=== PATIENT | female | born 1995 | race Caucasian/White ===

== ENCOUNTER 2017-02-27 21:00 | Emergency (ER) | payer OTHER ==
[2017-02-27 21:04] VITALS: BMI 26.6
[2017-02-27] MEDS ORDERED: ONDANSETRON 4 MG/2 ML VIAL IVPUSH ONE (21:55)
[2017-02-27] MEDS ORDERED: morphine CARPU-JECT 4 MG/1 ML DISP.SYRIN IVPUSH ONE (21:55)
[2017-02-27] MEDS ORDERED: SODIUM CHLORIDE 1,000 ML IV STA (21:55)
[2017-02-27] MEDS ORDERED: ONDANSETRON 4 MG/2 ML VIAL ONE (22:04)
[2017-02-27] MEDS ORDERED: morphine CARPU-JECT 4 MG/1 ML DISP.SYRIN ONE (22:04)
--- NOTE | 2017-02-27 22:27 | PDOC ---
History of Present Illness - General Chief Complaint: Pain Stated Complaint: PAIN Time Seen by Provider: 02/27/17 21:45 History Source: Patient Exam Limitations: No Limitations - History of Present Illness Travel History: No Initial Comments: 02/27/17 22:22 21yo Female patient w/ PmHx: Polycystic Ovarian Syndrome presents to ED c/o Lower abdominal pain. Patient reports some mild discomfort yesterday, but while eating a salad today at [employer] she experienced a sudden increase in pain approximately 30 mins ago. Patient states 2 yrs ago experiencing similar symptoms while in [facility] [place] and had to have emergency surgery due to rupture. She states having Ultrasound 2 months ago that was "normal." Patient denies n/v/d, vaginal bleeding, dysuria, hematuria, back pain, diff breathing, fever, or any other complaints at this time. LNMP: February 01. Timing/Duration: reports: other (Sudden Onset) Quality: reports: severe Abdominal Pain Onset Location: reports: suprapubic Pain Radiation: reports: no radiation Activities at Onset: reports: eating Treatment Prior to Arrive: worse with: analgesics, antacids, cold pack, heat, laxative, enema, other Aggravating Factors: improves with: Eating, Movement, Change in position Alleviating Factors: improves with: None Past History - Travel Traveled outside of the country in the last 30 days: No Close contact w/someone who was outside of country & ill: No - Past Medical History Allergies/Adverse Reactions: Allergies Allergy/AdvReac Type Severity Reaction Status Date / Time No Known Allergies Allergy Verified 02/27/17 21:04 Home Medications: Ambulatory Orders Ibuprofen 600 mg PO Q6H PRN #20 tablet 02/28/17 Tramadol HCl 50 mg PO Q6H PRN #16 tablet MDD 4 TABS 02/28/17 Other medical history: PCOS - Surgical History Abdominal Surgery: Yes - Psycho/Social/Smoking Cessation Hx Suicidal Ideation: No Smoking History: Never smoked Abd/GI Specific PMHX - Complaint Specific PMHX Colitis: No Diverticulitis: No Gall Bladder Disease: No GERD: No Hepatitis: No Irritable Bowel Synd (IBS): No Pancreatitis: No GI Ulcer Disease: No Review of Systems - Review of Systems Able to Perform ROS?: Yes Is the patient limited Lithuanian proficient: No Constitutional: No: Chills, Fever ABD/GI: Yes: Abdominal Distended, Abdominal cramping. No: Constipated, Diarrhea , Nausea, Poor Appetite, Poor Fluid Intake, Rectal Bleeding, Vomiting : No: Burning, Dysuria, Flank Pain, Hematuria Musculoskeletal: No: Back Pain All Other Systems: Reviewed and Negative *Physical Exam - Vital Signs Last Vital Signs Temp Pulse Resp BP Pulse Ox 98.6 F 89 18 146/66 99 02/27/17 21:02 02/27/17 21:02 02/27/17 21:02 02/27/17 21:02 02/27/17 21:02 - Physical Exam General Appearance: Yes: Nourished, Appropriately Dressed, Apparent Distress, Moderate Distress. No: Mild Distress, Severe Distress Neck: positive: Trachea midline, Normal Thyroid, Supple. negative: Rigid, Stridor, Lymphadenopathy (R), Lymphadenopathy (L) Respiratory/Chest: positive: Lungs Clear, Normal Breath Sounds. negative: Chest Tender, Respiratory Distress, Accessory Muscle Use, Labored Respiration, Rapid RR, Rhonchi, Stridor, Wheezing Cardiovascular: positive: Regular Rhythm, Regular Rate. negative: Bradycardia, Tachycardia Gastrointestinal/Abdominal: positive: Normal Bowel Sounds, Tender, Soft, Distended, Guarding, Rebound, Tenderness (Pelvic region) Musculoskeletal: positive: Normal Inspection. negative: CVA Tenderness Extremity: positive: Normal Capillary Refill, Normal Inspection, Normal Range of Motion, Pelvis Stable Integumentary: positive: Normal Color, Dry, Warm. 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 NML intact, Fully Oriented, Alert, Normal Mood/ Affect, Normal Response, Motor Strength /5 ED Treatment Course - LABORATORY CBC & Chemistry Diagram: 02/27/17 22:00 02/27/17 22:00 - RADIOLOGY Radiology Studies Ordered: Category Date Time Status TRANSVAGINAL ULTRASOUND US [US] Stat Ultrasound 02/27/17 21:56 Ordered - Medications Given in the ED: ED Medications Discontinued Medications Generic Name Dose Route Start Last Admin Trade Name Freq PRN Reason Stop Dose Admin Morphine Sulfate 4 mg 02/27/17 21:55 02/27/17 22:13 Morphine Injection - IVPUSH 02/27/17 21:56 4 mg ONCE ONE Administration Ondansetron HCl 4 mg 02/27/17 21:55 02/27/17 22:15 Zofran Injection IVPUSH 02/27/17 21:56 4 mg ONCE ONE Administration *DC/Admit/Observation/Transfer Diagnosis at time of Disposition: Ruptured ovarian cyst, Polycystic disease, ovaries - Discharge Dispostion Disposition: HOME Condition at time of disposition: Improved Admit: No - Prescriptions Prescriptions: Ibuprofen 600 mg PO Q6H PRN #20 tablet PRN Reason: Mild Pain Tramadol HCl 50 mg PO Q6H PRN #16 tablet MDD 4 TABS PRN Reason: Severe Pain - Referrals Referrals: STAFF,NOT ON [Primary Care Provider] - Ave Benavides MD [Staff Physician] - - Patient Instructions Printed Discharge Instructions: DI for Ovarian Cyst, DI for Ovarian Cyst Removal Additional Instructions: FOLLOW UP WITH YOUR PAPER HANGER THIS WEEK FOR FURTHER EVALUATION, OR FOLLOW UP WITH DR. BENAVIDES (PAPER HANGER). CALL TO SCHEDULE APPOINTMENT. TAKE MEDICATIONS PRESCRIBED. MOTRIN WORKS BEST. APPLY WARM COMPRESS/HEATING PAD TO ABDOMEN NEEDED FOR COMFORT. TRAMADOL FOR SEVERE PAIN NOT RELIEVED BY MOTRIN. RETURN IF SYMPTOM WORSEN OR ANY CONCERN FOR FURTHER EVALUATION. Print Language: FAROESE - Post Discharge Activity Work/School Note: Back to Work
[2017-02-27 22:44] LABS: BASOPHIL 0.3 % (0-2.0); EOSINOPHIL 2.6 % (0-4.5); MCH 27.2 pg (25.7-33.7); MCHC 32.5 g/dl (32.0-36.0); MEAN CELL VOLUME 83.6 fl (80-96); MEAN PLT VOLUME 9.8 fl (7.5-11.1); PLATELET COUNT 255 K/MM3 (134-434); RDW 13.6 % (11.6-15.6); WHITE BLOOD COUNT 11.9 K/mm3 (4.0-10.0)
[2017-02-27 22:52] LABS: INR 1.08 (0.82-1.09); PROTHROMBIN TIME (PATIENT) 11.9 SEC (9.98-11.88)
--- NOTE | 2017-02-27 22:53 | PDOC ---
*Physical Exam - Vital Signs Last Vital Signs Temp Pulse Resp BP Pulse Ox 98.6 F 89 18 146/66 99 02/27/17 21:02 02/27/17 21:02 02/27/17 21:02 02/27/17 21:02 02/27/17 21:02 - Physical Exam Comments: 02/27/17 22:53 The patient was examined by [JESUS Hagen] under my direct supervision. I personally evaluated the patient. I concur with the above findings and the plan of care. ED Treatment Course - LABORATORY CBC & Chemistry Diagram: 02/27/17 22:00 02/27/17 22:00 - ADDITIONAL ORDERS Additional order review: 02/27/17 22:00 RBC 4.31 MCV 83.6 MCHC 32.5 RDW 13.6 MPV 9.8 Neutrophils % 56.0 Lymphocytes % 34.0 Monocytes % 7.1 Eosinophils % 2.6 Basophils % 0.3 - Medications Given in the ED: ED Medications Discontinued Medications Generic Name Dose Route Start Last Admin Trade Name Freq PRN Reason Stop Dose Admin Morphine Sulfate 4 mg 02/27/17 21:55 02/27/17 22:13 Morphine Injection - IVPUSH 02/27/17 21:56 4 mg ONCE ONE Administration Ondansetron HCl 4 mg 02/27/17 21:55 02/27/17 22:15 Zofran Injection IVPUSH 02/27/17 21:56 4 mg ONCE ONE Administration *DC/Admit/Observation/Transfer Diagnosis at time of Disposition: Ruptured ovarian cyst, Polycystic disease, ovaries - Discharge Dispostion Disposition: HOME - Prescriptions Prescriptions: Ibuprofen 600 mg PO Q6H PRN #20 tablet PRN Reason: Mild Pain Tramadol HCl 50 mg PO Q6H PRN #16 tablet MDD 4 TABS PRN Reason: Severe Pain - Referrals Referrals: Ave Benavides MD [Staff Physician] - STAFF,NOT ON [Primary Care Provider] - - Patient Instructions Printed Discharge Instructions: DI for Ovarian Cyst Removal, DI for Ovarian Cyst Additional Instructions: FOLLOW UP WITH YOUR TRIM MACHINE ADJUSTER THIS WEEK FOR FURTHER EVALUATION, OR FOLLOW UP WITH DR. BENAVIDES (TRIM MACHINE ADJUSTER). CALL TO SCHEDULE APPOINTMENT. TAKE MEDICATIONS PRESCRIBED. MOTRIN WORKS BEST. APPLY WARM COMPRESS/HEATING PAD TO ABDOMEN NEEDED FOR COMFORT. TRAMADOL FOR SEVERE PAIN NOT RELIEVED BY MOTRIN. RETURN IF SYMPTOM WORSEN OR ANY CONCERN FOR FURTHER EVALUATION. Print Language: DIVEHI - Post Discharge Activity Work/School Note: Back to Work
[2017-02-27 22:55] LABS: ACTIVATED PTT 30.6 SECONDS (26.9-34.4)
[2017-02-27 23:02] LABS: ALBUMIN 3.8 g/dl (3.4-5.0); ANION GAP 7 (8-16); BILIRUBIN,TOTAL 0.4 mg/dL (0.2-1.0); CALCIUM 8.8 mg/dL (8.5-10.1); CO2 26 mmol/L (21-32); CREATININE 0.8 mg/dL (0.55-1.02); GLUCOSE,RANDOM 93 mg/dL (74-106); SGOT/AST 21 U/L (15-37); SGPT/ALT 19 U/L (12-78); TOT PROT 7.2 g/dl (6.4-8.2)
[2017-02-27 23:03] LABS: ALK PHOS 52 U/L (45-117)
[2017-02-28 01:59] LABS: URINE APPEARANCE CLEAR; URINE BILIRUBIN NEGATIVE (NEGATIVE); URINE BLOOD NEGATIVE (NEGATIVE); URINE COLOR COLORLESS; URINE GLUCOSE (UA) NEGATIVE (NEGATIVE); URINE KETONE NEGATIVE (NEGATIVE); URINE LEUK ESTERASE NEGATIVE (NEGATIVE); URINE NITRITE NEGATIVE (NEGATIVE); URINE PROTEIN NEGATIVE (NEGATIVE); URINE UROBILINOGEN NEGATIVE E.U./dl (0.2-1.0)
[2017-02-28 02:05] VITALS: BP 113/60; PULSE 67; TEMP 98.3
--- NOTE | 2017-02-28 13:02 | PDOC ---
*Physical Exam - Vital Signs Last Vital Signs Temp Pulse Resp BP Pulse Ox 98.3 F 67 17 113/60 96 02/28/17 02:04 02/28/17 02:04 02/28/17 02:04 02/28/17 02:04 02/28/17 02:04 ED Treatment Course - LABORATORY CBC & Chemistry Diagram: 02/27/17 22:00 02/27/17 22:00 - ADDITIONAL ORDERS Additional order review: Laboratory Results 02/27/17 22:00 Serum , Qual Negative Urine Color Colorless Urine Appearance Clear Urine pH 6.0 Ur Specific [place] 1.010 Urine Protein Negative Urine Glucose (UA) Negative Urine Ketones Negative Urine Blood Negative Urine Nitrite Negative Urine Bilirubin Negative Urine Urobilinogen Negative Ur Leukocyte Esterase Negative 02/27/17 22:00 RBC 4.31 MCV 83.6 MCHC 32.5 RDW 13.6 MPV 9.8 Neutrophils % 56.0 Lymphocytes % 34.0 Monocytes % 7.1 Eosinophils % 2.6 Basophils % 0.3 - Medications Given in the ED: ED Medications Discontinued Medications Generic Name Dose Route Start Last Admin Trade Name Freq PRN Reason Stop Dose Admin Sodium Chloride 1,000 mls @ 1,000 mls/hr 02/27/17 21:55 02/27/17 22:14 Normal Saline - IV 02/27/17 22:54 1,000 mls/hr ASDIR STA Administration Morphine Sulfate 4 mg 02/27/17 21:55 02/27/17 22:13 Morphine Injection - IVPUSH 02/27/17 21:56 4 mg ONCE ONE Administration Ondansetron HCl 4 mg 02/27/17 21:55 02/27/17 22:15 Zofran Injection IVPUSH 02/27/17 21:56 4 mg ONCE ONE Administration *DC/Admit/Observation/Transfer Diagnosis at time of Disposition: Ruptured ovarian cyst, Polycystic disease, ovaries - Discharge Dispostion Disposition: HOME - Prescriptions Prescriptions: Ibuprofen 600 mg PO Q6H PRN #20 tablet PRN Reason: Mild Pain Tramadol HCl 50 mg PO Q6H PRN #16 tablet MDD 4 TABS PRN Reason: Severe Pain - Referrals Referrals: Ave Benavides MD [Staff Physician] - STAFF,NOT ON [Primary Care Provider] - - Patient Instructions Printed Discharge Instructions: DI for Ovarian Cyst Removal, DI for Ovarian Cyst Additional Instructions: FOLLOW UP WITH YOUR METAL RIVETING MACHINE OPERATOR THIS WEEK FOR FURTHER EVALUATION, OR FOLLOW UP WITH DR. BENAVIDES (METAL RIVETING MACHINE OPERATOR). CALL TO SCHEDULE APPOINTMENT. TAKE MEDICATIONS PRESCRIBED. MOTRIN WORKS BEST. APPLY WARM COMPRESS/HEATING PAD TO ABDOMEN NEEDED FOR COMFORT. TRAMADOL FOR SEVERE PAIN NOT RELIEVED BY MOTRIN. RETURN IF SYMPTOM WORSEN OR ANY CONCERN FOR FURTHER EVALUATION. Print Language: MAORI - Post Discharge Activity Work/School Note: Back to Work
== END 2017-02-28 04:11 | disposition home or self-care (01) ==
LOC: JER 21:00
PROC: 3E033NZ Introduction of Analgesics, Hypnotics, Sedatives into Peripheral Vein, Percutaneous Approach (ICD-10-PCS; principal; 2017-02-27)
PROC: 3E033GC Introduction of Other Therapeutic Substance into Peripheral Vein, Percutaneous Approach (ICD-10-PCS; 2017-02-27)
PROC: 3E0337Z Introduction of Electrolytic and Water Balance Substance into Peripheral Vein, Percutaneous Approach (ICD-10-PCS; 2017-02-27)
DX: N83.299 Other ovarian cyst, unspecified side (principal); E28.2 Polycystic ovarian syndrome
CPT/HCPCS: 36415; 74177-TC; 76830-TC; 80053; 81003; 84703; 85025; 85610; 85730; 86850; 86900; 86901; 87086; 99284-25